=== PATIENT | female | born 1995 | race African-American/Black ===

== ENCOUNTER → 2018-01-01 | Outpatient (CLI) | payer OTHER ==
--- NOTE | ~2018-01-01 | EKG ---
[address] [address] ELECTROCARDIOGRAM REPORT Name: RITESH ESPARZASHUBHAM Room #: REG [facility]ENTERJamir#: [id number] Admission: 01/01/18 Attend Phys: Javid Rodriguez MD Discharge: Date of : [birth year] Report #: [id number] THIS REPORT FOR: //name// [facility] Test Date: 2018-01-01 Test Time: 11:04:29 Pat Name: BRODY ESPARZA Department: Room: Gender: F Quality Control Clerk: Pramod ETIENNE : 1995 Requested By: Javid Rodriguez Order Number: [id number] MD: Tyler Lee Measurements Intervals [place] Rate: 72 P: 81 [place]: 140 QRS: 72 QRSD: 90 T: 56 QT: 378 QTc: 414 Interpretive Statements Sinus rhythm Compared to ECG 01/30/2013 01:23:53 First degree AV block no longer present Electronically Signed On 01-01-2018 14:01:00 CDT by Tyler Lee [email or web address] <ELECTRONICALLY SIGNED> By: Tyler Lee MD 01/01/18 1401 1104 03 Tyler Lee MD /ABBY
== END ==
LOC: CV 10:40
DX: R55 Syncope and collapse (principal); R42 Dizziness and giddiness